=== PATIENT | male | born 1945 | race American Indian/Alaskan Native ===

== ENCOUNTER 2019-02-28 18:28 | Emergency (ER) | payer MEDICARE, OTHER ==
--- NOTE | 2019-02-28 18:28 | EDM.PDOC ---
<Juan York M - Last Filed: 02/28/19 18:28> ED HPI GENERAL MEDICAL PROBLEM - General Chief Complaint: General Stated Complaint: AMBULANCE Time Seen by Provider: 02/28/19 18:10 Source of Information: Reports: Patient History Limitations: Reports: No Limitations - History of Present Illness INITIAL COMMENTS - FREE TEXT/NARRATIVE: This 73 yo male patient was brought to the ED by [facility] due to right sided groin pain. The patient reports he started to notice some "lumps" in his groin about 1 week ago. The patient was seen in the [facility] on Tuesday and started on Cipro as well as given pain medications. The patient has not been able to get out of bed due to the increased pain. Dr. Pugh contacted [facility] who requested the ambulance go to the patient's house leading to the transport to the ED. The patient reports he has a history of prostate cancer 1 year ago(treated in [place]). After 7 treatments, the patient was told there was no more cancer and he was released. The patient has not had any problems since that time. Duration: Week(s):, Constant, Getting Worse Location: Reports: Lower Extremity, Right Quality: Reports: Ache, Pressure, Sharp Severity: Severe Improves with: Reports: None Worsens with: Reports: Movement Associated Symptoms: Reports: No Other Symptoms - Related Data Allergies Allergy/AdvReac Type Severity Reaction Status Date / Time No Known Allergies Allergy Verified 05/11/14 11:44 Home Meds: Home Meds Lisinopril 40 mg PO DAILY 04/08/14 [History] hydroCHLOROthiazide [Hydrochlorothiazide] 25 mg PO DAILY 04/08/14 [History] Ciprofloxacin HCl [Cipro] 500 mg PO BID 02/28/19 [History] Hydrocodone/Acetaminophen [Hydrocodon-Acetaminophen 5-325] 1 tab PO ASDIRECTED 02/28/19 [History] Past Medical History Cardiovascular History: Reports: Hypertension Genitourinary History: Reports: Other (See Below) Oncologic (Cancer) History: Reports: Other (See Below) Other Oncologic History: not sure of what - Past Surgical History Male Surgical History: Reports: Other (See Below) Other Male Surgeries/Procedures: superpubic catheter Social & Family History - Tobacco Use Smoking Status *Q: Former Smoker Years of Tobacco use: 45 Packs/Tins Daily: 1 Used Tobacco, but Quit: Yes Month/Year Tobacco Last Used: 2003 - Caffeine Use Caffeine Use: Reports: Coffee - Recreational Drug Use Recreational Drug Use: No - Living Situation & Occupation Living situation: Reports: , with Family Occupation: Disabled ED ROS GENERAL - Review of Systems Review Of Systems: ROS reveals no pertinent complaints other than HPI. ED EXAM, GENERAL - Physical Exam Exam: See Below Exam Limited By: No Limitations General Appearance: Alert, WD/WN, Moderate Distress, Thin Eye Exam: Bilateral Eye: EOMI, Normal Inspection, PERRL Ears: Normal External Exam, Normal Canal, Hearing Grossly Normal, Normal TMs Nose: Normal Inspection, Normal Mucosa, No Blood Throat/Mouth: Normal Inspection, Normal Lips, Normal Teeth, Normal Gums, Normal Oropharynx, Normal Voice, No Airway Compromise Head: Atraumatic, Normocephalic Neck: Normal Inspection, Supple, Non-Tender, Full Range of Motion Respiratory/Chest: No Respiratory Distress, Lungs Clear, Normal Breath Sounds, No Accessory Muscle Use, Chest Non-Tender Cardiovascular: Normal Peripheral Pulses, Regular Rate, Rhythm, No Edema, No Gallop, No JVD, No Murmur, No Rub GI/Abdominal: Normal Bowel Sounds, Soft, Non-Tender, No Organomegaly, No Distention, No Abnormal Bruit, No Mass (Male) Exam: Scrotum Tenderness (R), Other (right groin mass) Rectal (Males) Exam: Deferred Extremities: Leg Pain (right groin) Neurological: Alert, Oriented, CN II-XII Intact, Normal Cognition Psychiatric: Normal Affect, Normal Mood Skin Exam: Warm, Dry, Intact, Normal Color, No Rash Lymphatic: No Adenopathy Course - Vital Signs Last Recorded V/S: Last Vital Signs Temp 97.5 F 02/28/19 20:24 Pulse 73 02/28/19 20:26 Resp 19 02/28/19 20:26 BP 116/79 02/28/19 20:26 Pulse Ox 95 02/28/19 20:26 - Orders/Labs/Meds Orders: Active Orders 24 hr Category Date Time Status Abdomen Pelvis w Cont [CT] Urgent Exams 02/28/19 19:06 Taken CULTURE BLOOD [BC] Stat Lab 02/28/19 18:23 Received CULTURE BLOOD [BC] Stat Lab 02/28/19 18:45 Received CULTURE URINE [RM] Stat Lab 02/28/19 19:35 Received CULTURE WOUND [RM] Stat Lab 02/28/19 17:41 Received Piperacillin/Tazobactam [Zosyn] 3.375 gm Med 02/28/19 20:29 Ordered Sodium Chloride 0.9% [Normal Saline] 100 ml IV ONETIME Sodium Chloride 0.9% [Normal Saline] 1,000 ml Med 02/28/19 19:52 Active IV .BOLUS Vancomycin 1 gm Med 02/28/19 19:55 Active Sodium Chloride 0.9% [Normal Saline] 250 ml IV ONETIME Blood Culture x2 Reflex Set [OM.PC] Stat Oth 02/28/19 18:18 Ordered Medication Orders Sodium Chloride (Normal Saline) 1,000 mls @ 500 mls/hr IV .BOLUS ONE Stop: 02/28/19 21:51 Last Admin: 02/28/19 20:09 Dose: 500 mls/hr Vancomycin HCl 1 gm/ Sodium (Chloride) 250 mls @ 167 mls/hr IV ONETIME ONE Stop: 02/28/19 21:24 Last Admin: 02/28/19 20:09 Dose: 167 mls/hr Piperacillin Sod/Tazobactam (Sod 3.375 gm/ Sodium Chloride) 100 mls @ 200 mls/ hr IV ONETIME ONE Stop: 02/28/19 20:58 Labs: Laboratory Tests 02/28/19 02/28/19 02/28/19 Range/Units 18:23 18:23 18:23 WBC 20.4 H (5.0-10.0) 10^3/uL RBC 3.87 L (4.6-6.2) 10^6/uL Hgb 11.8 L (14.0-18.0) g/dL Hct 35.2 L (40.0-54.0) % MCV 91.0 (80-100) fL MCH 30.5 (27.0-34.0) pg MCHC 33.5 (33.0-35.0) g/dL Plt Count 444 (150-450) 10^3/uL Neut % (Auto) 81.6 H (42.2-75.2) % Lymph % (Auto) 7.3 L (20.5-50.1) % [place] % (Auto) 10.8 H (2-8) % Eos % (Auto) 0.2 L (1.0-3.0) % Baso % (Auto) 0.1 (0.0-1.0) % Sodium 129 L (135-145) mmol/L Potassium 3.4 L (3.6-5.0) mmol/L Chloride 94 L (101-111) mmol/L Carbon Dioxide 25.0 (21.0-31.0) mmol/L Anion Gap 13.4 BUN 12 (7-18) mg/dL Creatinine 0.7 (0.6-1.3) mg/dL Est Cr Clr Drug Dosing 97.04 mL/min Estimated GFR (MDRD) > 60 BUN/Creatinine Ratio 17.14 Glucose 131 H (74-105) mg/dL Lactic Acid 0.9 (0.5-2.2) mmol/L Calcium 8.1 L (8.4-10.2) mg/dl Total Bilirubin 0.9 (0.2-1.0) mg/dL AST 23 (10-42) IU/L ALT 21 (10-60) IU/L Alkaline Phosphatase 112 (42-121) IU/L Total Protein 7.6 (6.7-8.2) g/dl Albumin 2.5 L (3.2-5.5) g/dl Globulin 5.1 Albumin/Globulin Ratio 0.49 Urine Color (YELLOW) Urine Appearance (CLEAR) Urine pH (5.0-9.0) Ur Specific [place] (1.005-1.030) Urine Protein (NEGATIVE) Urine Glucose (UA) (NEGATIVE) Urine Ketones (NEGATIVE) Urine Occult Blood (NEGATIVE) Urine Nitrite (NEGATIVE) Urine Bilirubin (NEGATIVE) Urine Urobilinogen (0.2-1.0) mg/dL Ur Leukocyte Esterase (NEGATIVE) Urine RBC /HPF Urine WBC (0-5/HPF) /HPF Ur Epithelial Cells (NOT SEEN) /HPF Amorphous Sediment (NOT SEEN) /HPF Urine Bacteria (0-FEW/HPF) /HPF Urine Mucus (NOT SEEN) /LPF 02/28/19 Range/Units 19:35 WBC (5.0-10.0) 10^3/uL RBC (4.6-6.2) 10^6/uL Hgb (14.0-18.0) g/dL Hct (40.0-54.0) % MCV (80-100) fL MCH (27.0-34.0) pg MCHC (33.0-35.0) g/dL Plt Count (150-450) 10^3/uL Neut % (Auto) (42.2-75.2) % Lymph % (Auto) (20.5-50.1) % [place] % (Auto) (2-8) % Eos % (Auto) (1.0-3.0) % Baso % (Auto) (0.0-1.0) % Sodium (135-145) mmol/L Potassium (3.6-5.0) mmol/L Chloride (101-111) mmol/L Carbon Dioxide (21.0-31.0) mmol/L Anion Gap BUN (7-18) mg/dL Creatinine (0.6-1.3) mg/dL Est Cr Clr Drug Dosing mL/min Estimated GFR (MDRD) BUN/Creatinine Ratio Glucose (74-105) mg/dL Lactic Acid (0.5-2.2) mmol/L Calcium (8.4-10.2) mg/dl Total Bilirubin (0.2-1.0) mg/dL AST (10-42) IU/L ALT (10-60) IU/L Alkaline Phosphatase (42-121) IU/L Total Protein (6.7-8.2) g/dl Albumin (3.2-5.5) g/dl Globulin Albumin/Globulin Ratio Urine Color Yellow (YELLOW) Urine Appearance Turbid (CLEAR) Urine pH 6.5 (5.0-9.0) Ur Specific [place] 1.010 (1.005-1.030) Urine Protein Negative (NEGATIVE) Urine Glucose (UA) Negative (NEGATIVE) Urine Ketones Negative (NEGATIVE) Urine Occult Blood Trace-intact H (NEGATIVE) Urine Nitrite Positive H (NEGATIVE) Urine Bilirubin Negative (NEGATIVE) Urine Urobilinogen 4.0 H (0.2-1.0) mg/dL Ur Leukocyte Esterase Moderate H (NEGATIVE) Urine RBC 5-10 H /HPF Urine WBC >100 H (0-5/HPF) /HPF Ur Epithelial Cells Rare (NOT SEEN) /HPF Amorphous Sediment Few (NOT SEEN) /HPF Urine Bacteria Many H (0-FEW/HPF) /HPF Urine Mucus Not seen (NOT SEEN) /LPF Meds: Medications Generic Name Dose Route Start Last Admin Trade Name Freq PRN Reason Stop Dose Admin Sodium Chloride 1,000 mls @ 500 mls/hr 02/28/19 19:52 02/28/19 20:09 Normal Saline IV 02/28/19 21:51 500 mls/hr .BOLUS ONE Administration Vancomycin HCl 1 gm/ Sodium 250 mls @ 167 mls/hr 02/28/19 19:55 02/28/19 20: 09 Chloride IV 02/28/19 21:24 167 mls/hr ONETIME ONE Administration Piperacillin Sod/Tazobactam 100 mls @ 200 mls/hr 02/28/19 20:29 Sod 3.375 gm/ Sodium Chloride IV 02/28/19 20:58 ONETIME ONE Discontinued Medications Generic Name Dose Route Start Last Admin Trade Name Freq PRN Reason Stop Dose Admin Fentanyl 50 mcg 02/28/19 19:52 02/28/19 20:08 Sublimaze IVPUSH 02/28/19 19:53 50 mcg ONETIME ONE Administration Iopamidol 100 ml 02/28/19 19:06 02/28/19 19:38 Isovue-300 (61%) IVPUSH 02/28/19 19:07 98 ml ONETIME ONE Administration Ondansetron HCl 4 mg 02/28/19 19:52 02/28/19 20:07 Zofran IV 02/28/19 19:53 4 mg ONETIME ONE Administration Departure - Departure Disposition: DC/Tfer to [facility] 02 Clinical Impression: Groin abscess, Abscess or cellulitis of thigh, Suprapubic catheter - Discharge Information Forms: ED Department Discharge - My Orders Last 24 Hours: My Active Orders 02/28/19 19:52 Sodium Chloride 0.9% [Normal Saline] 1,000 ml IV .BOLUS 02/28/19 19:55 Vancomycin 1 gm Sodium Chloride 0.9% [Normal Saline] 250 ml IV ONETIME 02/28/19 20:29 Piperacillin/Tazobactam [Zosyn] 3.375 gm Sodium Chloride 0.9% [Normal Saline] 100 ml IV ONETIME - Assessment/Plan Last 24 Hours: My Active Orders 02/28/19 19:52 Sodium Chloride 0.9% [Normal Saline] 1,000 ml IV .BOLUS 02/28/19 19:55 Vancomycin 1 gm Sodium Chloride 0.9% [Normal Saline] 250 ml IV ONETIME 02/28/19 20:29 Piperacillin/Tazobactam [Zosyn] 3.375 gm Sodium Chloride 0.9% [Normal Saline] 100 ml IV ONETIME <Katerina Zaragoza - Last Filed: 02/28/19 20:47> ED HPI GENERAL MEDICAL PROBLEM - History of Present Illness INITIAL COMMENTS - FREE TEXT/NARRATIVE: Hx supra pubic catheter around 10 years placed for retention following remote head injury when fell in tub. ED EXAM, GENERAL - Physical Exam (Male) Exam: Other (right groin mass, Suproapubic catheter draining concentrated urine. ) Skin Exam: Increased Warmth (right inner upper thigh), Other (2cm open wound right groin fold draing dark green thick purulent foul smelling fluid.) Course - Radiology Interpretation Free Text/Narrative:: [facility] Final Radiology Report with Addendum Call: [phone] assistance Online chat: [email or web address] Name: HOWARD GERBER Age: 73Years M Date: 02/28/2019 SSN: -- : [id number] Study: CT ABDOMEN/PELVIS W Requesting Physician: Juan York Images: 268 Addl Studies: Provided Clinical History: Contrast: With Contrast Medium: ISO 300 Contrast Amount: 98 mL Contrast Method: LAC 18g Page 1 of 2 Addendum created by Saida Peoples MD on 02/28/2019 8:37 PM Central Time ([place] & [place]) Additional axial images were obtained of the proximal thighs. Initial Report created on 02/28/2019 8:06 PM Central Time ([place] & [place]) EXAM: CT Abdomen and Pelvis With Contrast EXAM DATE/TIME: 02/28/2019 7:25 PM CLINICAL HISTORY: 73 years old, male; Other: Abscess right groin, HX of prostate CA; Patient HX: PT states no HX of surgery TECHNIQUE: Imaging protocol: Axial computed tomography images of the abdomen and pelvis with intravenous contrast. Coronal and sagittal reformatted images were created and reviewed. Radiation optimization: All CT scans at this facility use at least one of these dose optimization techniques: automated exposure control; mA and/or kV adjustment per patient size (includes targeted exams where dose is matched to clinical indication); or iterative reconstruction. Contrast material: ISO 300; Contrast volume: 98 ml; Contrast route: LAC 18G; COMPARISON: No relevant prior studies available. FINDINGS: Liver: Normal. No mass. Gallbladder and bile ducts: Gallstones without evidence of acute cholecystitis. HOWARD GERBER | Final Radiology Report CONFIDENTIALITY STATEMENT This report is intended only for use by the referring physician, and only in accordance with law. If you received this in error, call [phone]. Page 2 of 2 Pancreas: Normal. No ductal dilation. Spleen: Normal. No splenomegaly. Adrenals: Normal. No mass. Kidneys and ureters: Normal. No hydronephrosis. Stomach and bowel: Diffuse colonic diverticulosis without diverticulitis. Appendix: No evidence of appendicitis. Intraperitoneal space: Normal. No free air. No significant fluid collection. Vasculature: Atherosclerosis. Embolized right renal artery aneurysm. Lymph nodes: Normal. No enlarged lymph nodes. Bladder: Suprapubic Mederos catheter in the bladder. Thickening of the bladder wall up to 1.3 cm which could be related to under distention or cystitis. Reproductive: Unremarkable as visualized. Bones/joints: Old left rib fractures. Degenerative disc disease at L5-S1. Soft tissues: Bilateral inguinal hernias containing fat, uncomplicated. Intramuscular abscesses in the medial proximal thighs, not fully included on this exam. These measure at least 8 cm each. IMPRESSION: 1. Gallstones without evidence of acute cholecystitis. 2. Bilateral inguinal hernias containing fat, uncomplicated. 3. Intramuscular abscesses in the medial proximal thighs, not fully included on this exam. These measure at least 8 cm each. 4. Thickening of the bladder wall up to 1.3 cm which could be related to under distention or cystitis. Correlate with urinalysis. 5. Diffuse colonic diverticulosis without diverticulitis. Thank you for allowing us to participate in the care of your patient. Dictated and Authenticated by: Saida Peoples - Re-Assessments/Exams Free Text/Narrative Re-Assessment/Exam: 02/28/19 20:[address] Robert Kern accepting of patient . Tx via [facility]. Departure - Departure Time of Disposition: 20:45 Condition: Undetermined - Discharge Information *PRESCRIPTION DRUG MONITORING PROGRAM REVIEWED*: No *COPY OF PRESCRIPTION DRUG MONITORING REPORT IN PATIENT JULIO: No
[2019-02-28 18:51] LABS: ANION GAP 13.4; CHLORIDE,CL 94 mmol/L (101-111); SODIUM,NA 129 mmol/L (135-145)
[2019-02-28] MEDS ORDERED: Iopamidol 612 MG/ML 100 ML Bottle IVPUSH ONE (19:06)
[2019-02-28] MEDS ORDERED: Sodium Chloride 0.9% 1,000 ML IV ONE (19:52)
[2019-02-28] MEDS ORDERED: Ondansetron 4 MG/2 ML SDV IV ONE (19:52)
[2019-02-28] MEDS ORDERED: fentaNYL 100 MCG/2 ML SDV IVPUSH ONE ×2 (19:52→20:44)
[2019-02-28] MEDS ORDERED: Piperacillin/Tazobactam 3.375 GM in Sodium Chloride 0.9% 100 ML IV ONE (20:29)
== END 2019-02-28 21:09 ==
LOC: DL.ED 18:28
DX: L02.214 Cutaneous abscess of groin (principal); S71.101A Unspecified open wound, right thigh, initial encounter; L03.115 Cellulitis of right lower limb; I10 Essential (primary) hypertension; Z87.891 Personal history of nicotine dependence; Z79.899 Other long term (current) drug therapy; Z96.0 Presence of urogenital implants; X58.XXXA Exposure to other specified factors, initial encounter
CPT/HCPCS: 36415; 74177; 80053; 81001; 83605; 85025; 87040; 87070; 87077; 87086; 87088; 87186; 96365; 96368; 96375; 96376; 99285-25; J2405; J2543; J3010; J3370; J7030; J7050; Q9967

== ENCOUNTER 2020-04-26 11:24 | Emergency (ER) | payer MEDICARE, OTHER ==
--- NOTE | 2020-04-26 12:03 | EDM.PDOC ---
<Ana Maria Awad R - Last Filed: 04/26/20 13:44> ED HPI GENERAL MEDICAL PROBLEM - General Chief Complaint: Respiratory Problem Stated Complaint: IN BY AMBULANCE Time Seen by Provider: 04/26/20 12:11 Source of Information: Reports: Patient History Limitations: Reports: No Limitations - History of Present Illness INITIAL COMMENTS - FREE TEXT/NARRATIVE: Pt is a 75 year old male with hx of alcohol abuse, chronic liver disease, HTN, prostate cancer who presents with productive cough x 2 weeks, worsening with shortness of breath. He denies fever, chills, nausea, vomiting, chest pain, lower extremity edema, diarrhea. Per patient, last drink was 1 week ago. States he drinks a 6 pack of beer daily. He is a non-smoker. Onset: Gradual Duration: Getting Worse Location: Reports: Chest Severity: Moderate Associated Symptoms: Reports: Cough, cough w sputum - Related Data Allergies Allergy/AdvReac Type Severity Reaction Status Date / Time No Known Allergies Allergy Verified 04/26/20 11:24 Home Meds: Home Meds Acetaminophen 1,000 mg PO Q8H 03/12/19 [History] Aspirin [Halfprin] 81 mg PO DAILY 03/12/19 [History] Gabapentin [Neurontin] 200 mg PO TID 03/12/19 [History] Metoprolol Tartrate [Lopressor] 25 mg PO BEDTIME 03/12/19 [History] Metoprolol Tartrate [Lopressor] 50 mg PO DAILY 03/12/19 [History] Multivitamin with Minerals [Multiple Vitamin] 1 tab PO DAILY 03/12/19 [History] Thiamine [Vitamin B-1] 100 mg PO DAILY 03/12/19 [History] oxyCODONE 10 mg PO Q4H PRN 03/12/19 [History] Past Medical History HEENT History: Reports: Cataract Other HEENT History: cataract in left eye Cardiovascular History: Reports: Hypertension Genitourinary History: Reports: Other (See Below) Other Genitourinary History: superpubic catheter Oncologic (Cancer) History: Reports: Prostate Other Oncologic History: 2018-radiation - Past Surgical History HEENT Surgical History: Reports: Cataract Surgery Male Surgical History: Reports: Other (See Below) Other Male Surgeries/Procedures: superpubic catheter Social & Family History - Family History Family Medical History: Noncontributory - Tobacco Use Smoking Status *Q: Never Smoker Second Hand Smoke Exposure: Yes - Caffeine Use Caffeine Use: Reports: Coffee - Alcohol Use Days Per Week of Alcohol Use: 7 Number of Drinks Per Day: 12 Total Drinks Per Week: 84 - Recreational Drug Use Recreational Drug Use: No - Living Situation & Occupation Living situation: Reports: , with Family Occupation: Disabled ED ROS GENERAL - Review of Systems Review Of Systems: See Below Constitutional: Reports: Malaise Respiratory: Reports: Shortness of Breath, Wheezing, Cough, Sputum Cardiovascular: Reports: Lightheadedness ED EXAM, GENERAL - Physical Exam Exam: See Below Exam Limited By: No Limitations General Appearance: Mild Distress Respiratory/Chest: Decreased Breath Sounds (Billaterally), Crackles (Bilaterally), Rhonchi (Bilaterally), Wheezing, Accessory Muscle Use (Male) Exam: Deferred, Other (suprpubic cather) Rectal (Males) Exam: Deferred Course - Vital Signs Text/Narrative:: COVID positive Lactic acid 7.9 1L LR bolus given Departure - Departure Time of Disposition: 13:44 Disposition: DC/Tfer to Acute Hospital 02 Condition: Poor Clinical Impression: Pneumonia, COVID-19, Sepsis, Respiratory distress, Elevated liver enzymes - Discharge Information Instructions: COVID-19, COVID-19: How to Protect Yourself and Others - CDC Referrals: PCP,None [Primary Care Provider] - Forms: ED Department Discharge Care Plan Goals: Discussed case with inhouse hospitalist Dr. Alonso who stated that with given mulitple cormobidities patient will require a higher level of care. Contacted [facility] in [place] and [facility] in [place] who stated that they do not have COVID rooms available at this time. Discussed case with Dr Bush at [facility] who accepted the patient. Patient is trasferred by ground ambulance with fluids and oxygen to be provided during transfer. Sepsis Event Note (ED) - Evaluation Sepsis Screening Result: No Definite Risk <Helen Renee - Last Filed: 04/26/20 16:22> ED EXAM, GENERAL - Physical Exam Nose: Normal Inspection, Normal Mucosa Head: Atraumatic, Normocephalic Course - Vital Signs Last Recorded V/S: Last Vital Signs Temp 98.4 F 04/26/20 11:35 Pulse 119 H 04/26/20 12:53 Resp 31 H 04/26/20 12:53 BP 129/74 04/26/20 12:53 Pulse Ox 99 04/26/20 12:53 - Orders/Labs/Meds Orders: Active Orders 24 hr Category Date Time Status CULTURE BLOOD [BC] Stat Lab 04/26/20 11:30 Received CULTURE BLOOD [BC] Stat Lab 04/26/20 13:37 Received Blood Culture x2 Reflex Set [OM.PC] Stat Oth 04/26/20 12:30 Ordered Peripheral IV Insertion Adult [OM.PC] Routine Oth 04/26/20 12:29 Ordered Labs: Laboratory Tests 04/26/20 04/26/20 04/26/20 Range/Units 11:18 11:30 11:30 WBC 15.5 H (5.0-10.0) 10^3/uL RBC 4.19 L (4.6-6.2) 10^6/uL Hgb 14.0 (14.0-18.0) g/dL Hct 39.0 L (40.0-54.0) % MCV 93.1 (80-100) fL MCH 33.4 (27.0-34.0) pg MCHC 35.9 H (33.0-35.0) g/dL Plt Count 110 L D (150-450) 10^3/uL Neut % (Auto) 89.7 H (42.2-75.2) % Lymph % (Auto) 2.2 L (20.5-50.1) % [place] % (Auto) 8.0 (2-8) % Eos % (Auto) 0.0 L (1.0-3.0) % Baso % (Auto) 0.1 (0.0-1.0) % Sodium 122 L (136-145) mmol/L Potassium 4.1 (3.5-5.1) mmol/L Chloride 87 L (98-107) mmol/L Carbon Dioxide 21 (21-32) mmol/L Anion Gap 18.1 H (7-13) mEq/L BUN 6 L (7-18) mg/dL Creatinine 0.82 (0.70-1.30) mg/dL Est Cr Clr Drug Dosing TNP Estimated GFR (MDRD) > 60 BUN/Creatinine Ratio 7.3 (No establ ref range) Glucose 133 H (74-99) mg/dL Lactic Acid (0.4-2.0) mmol/L Calcium 7.4 L (8.5-10.1) mg/dL Total Bilirubin 5.6 H (0.2-1.0) mg/dL AST 484 H (15-37) U/L ALT 55 (16-63) U/L Alkaline Phosphatase 397 H (46-116) U/L C-Reactive Protein (0.0-0.9) mg/dL Total Protein 8.3 H (6.4-8.2) g/dL Albumin 1.6 L (3.4-5.0) g/dL Globulin 6.7 Albumin/Globulin Ratio 0.24 Ethyl Alcohol (0) mg/dL COVID-19 (JOE) Positive H (NEGATIVE) 04/26/20 04/26/20 04/26/20 Range/Units 11:30 11:30 11:30 WBC (5.0-10.0) 10^3/uL RBC (4.6-6.2) 10^6/uL Hgb (14.0-18.0) g/dL Hct (40.0-54.0) % MCV (80-100) fL MCH (27.0-34.0) pg MCHC (33.0-35.0) g/dL Plt Count (150-450) 10^3/uL Neut % (Auto) (42.2-75.2) % Lymph % (Auto) (20.5-50.1) % [place] % (Auto) (2-8) % Eos % (Auto) (1.0-3.0) % Baso % (Auto) (0.0-1.0) % Sodium (136-145) mmol/L Potassium (3.5-5.1) mmol/L Chloride (98-107) mmol/L Carbon Dioxide (21-32) mmol/L Anion Gap (7-13) mEq/L BUN (7-18) mg/dL Creatinine (0.70-1.30) mg/dL Est Cr Clr Drug Dosing Estimated GFR (MDRD) BUN/Creatinine Ratio (No establ ref range) Glucose (74-99) mg/dL Lactic Acid 7.9 H* (0.4-2.0) mmol/L Calcium (8.5-10.1) mg/dL Total Bilirubin (0.2-1.0) mg/dL AST (15-37) U/L ALT (16-63) U/L Alkaline Phosphatase (46-116) U/L C-Reactive Protein 8.0 H (0.0-0.9) mg/dL Total Protein (6.4-8.2) g/dL Albumin (3.4-5.0) g/dL Globulin Albumin/Globulin Ratio Ethyl Alcohol 18 (0) mg/dL COVID-19 (JOE) (NEGATIVE) Meds: Medications Discontinued Medications Generic Name Dose Route Start Last Admin Trade Name Freq PRN Reason Stop Dose Admin Lactated Ringer's 1,000 mls @ 999 mls/hr 04/26/20 12:29 04/26/20 12:34 Ringers, Lactated IV 04/26/20 13:29 999 mls/hr .BOLUS ONE Administration Metoprolol Succinate 50 mg 04/26/20 12:29 04/26/20 12:37 Toprol Xl PO 04/26/20 12:30 50 mg ONETIME ONE Administration Sodium Chloride 10 ml 04/26/20 12:29 04/26/20 12:34 Saline Flush FLUSH 10 ml ASDIRECTED PRN Administration Keep Vein Open Sepsis Event Note (ED) - Focused Exam Vital Signs: Vital Signs Temp Pulse Pulse Resp BP BP Pulse Ox 04/26/20 12:53 119 H 31 H 129/74 99 04/26/20 12:37 133 H 164/90 H 04/26/20 11:35 98.4 F 139 H 40 H 155/91 H 100 - My Orders Last 24 Hours: My Active Orders 04/26/20 12:29 Peripheral IV Insertion Adult [OM.PC] Routine - Assessment/Plan Last 24 Hours: My Active Orders 04/26/20 12:29 Peripheral IV Insertion Adult [OM.PC] Routine Plan: Patient seen and examined. Agree with note as written by Dr. Awad. 04/26/2020 [id number]
[2020-04-26 12:11] LABS: ANION GAP 18.1 mEq/L (7-13)
[2020-04-26] MEDS ORDERED: Lactated Ringers 1,000 ML IV ONE (12:29)
[2020-04-26] MEDS ORDERED: Metoprolol Succinate 50 MG Tab.ER PO ONE (12:29)
[2020-04-26] MEDS ORDERED: Sodium Chloride 0.9% 10 ML Syringe FLUSH PRN (12:29)
[2020-04-26 12:31] LABS: CHLORIDE,CL 87 mmol/L (98-107); SODIUM,NA 122 mmol/L (136-145)
--- NOTE | 2020-04-26 13:45 | CT ---
PROCEDURE INFORMATION: Exam: CT Chest Without Contrast Exam date and time: 04/26/2020 12:57 PM Age: 75 years old Clinical indication: Tachypnea; Additional info: Covid positive, tachypneic TECHNIQUE: Imaging protocol: Computed tomography of the chest without contrast. Radiation optimization: All CT scans at this facility use at least one of these dose optimization techniques: automated exposure control; mA and/or kV adjustment per patient size (includes targeted exams where dose is matched to clinical indication); or iterative reconstruction. COMPARISON: CT Chest Abdomen Pelvis w Cont 07/14/2018 11:23 AM FINDINGS: Limitations: Motion artifact. Lungs: On lung windows the patient has underlying lung disease with findings consistent with emphysema. There are bilateral apical pleural based blebs . there is an area airspace disease abutting the left heart border as well as airspace disease in the lingula, some of these opacifications have ground-glass features. In addition there are peripheral patchy areas alveolar disease involving multiple segments the right lower lobe. Pleural space: No pleural effusion. Heart: Unremarkable. No cardiomegaly. No pericardial effusion. Aorta: On mediastinal windows atherosclerotic changes are seen involving the aortic arch and proximal abdominal aorta. Lymph nodes: Unremarkable. No enlarged lymph nodes. Liver: The patient's liver is severely decreased in attenuation consistent with fatty infiltration. It measures -2 Hounsfield units. It measures 25 x 20 cm in size. Intraperitoneal space: In the images of the upper abdomen there is now free fluid seen around the spleen which was not present on prior exam. Visualized portion of the gallbladder demonstrates the gallbladder to be distended with several large gallstones present. Bones/joints: On bone windows there is mild curvature of the spine. There is discogenic degenerative changes in the visualized thoracic spine and there is mild compression deformity at approximately T8. Soft tissues: Unremarkable. IMPRESSION: 1. Bilateral peripheral infiltrates some of which have alveolar features. This finding can be seen CoVID pneumonia. However, in addition the patient has underlying lung disease consistent with emphysema.Imaging features can be seen with COVID-19 pneumonia, though are nonspecific and can occur with a variety of infectious and noninfectious processes. References: milton Miranda al., Rad[employer] Society of [place] Expert Consensus Statement on Reporting Chest CT Findings Related to COVID-19. Endorsed by the Society of Thoracic Radiology, the [place] [employer], and [employer]NA. Published December 05, 2019. 2. To prior exam patient now has some free fluid around the spleen. The liver is enlarged and demonstrates fatty infiltration. Two gallstones are seen in a distended gallbladder as well.
== END 2020-04-26 14:00 ==
LOC: DL.ED 11:24
DX: A41.89 Other specified sepsis (principal); U07.1 COVID-19; J12.89 Other viral pneumonia; R74.8 Abnormal levels of other serum enzymes; I10 Essential (primary) hypertension; Z79.82 Long term (current) use of aspirin; Z79.899 Other long term (current) drug therapy; Z77.22 Contact with and (suspected) exposure to environmental tobacco smoke (acute) (chronic)
CPT/HCPCS: 36415; 71250; 80053; 80307; 83605; 85025; 86140; 87040; 96360; 99284; 99285; A9270; J7120; U0002

== ENCOUNTER 2020-05-06 13:20 | Emergency (ER) | payer MEDICARE, OTHER ==
[2020-05-06 13:54] LABS: ALLEN TEST PERFORMED; BASE EXCESS ARTERIAL 0 mmol/L ((-2)-(+3)); BICARBONATE,ARTERIAL 22.2 mmol/L (22-26); O2 DELIVERY DEVICE BIPAP; O2 SATURATION ARTERIAL 100 % (95-100); PCO2 ARTERIAL 31 mmHg (35-45); PO2 ARTERIAL 228 mmHg (70-100)
--- NOTE | 2020-05-06 13:56 | EDM.PDOC ---
ED HPI GENERAL MEDICAL PROBLEM - General Chief Complaint: Respiratory Problem Time Seen by Provider: 05/06/20 13:40 Source of Information: Reports: Patient, EMS History Limitations: Reports: Altered Mental Status - History of Present Illness INITIAL COMMENTS - FREE TEXT/NARRATIVE: This 75 yo male patient was brought to the ED by [facility] due to increased shortness of breath. The patient was diagnoses with COVID on 04/26/20 and sent to [facility] for treatment. The patient was released on 05/01/20, but has been experiencing increased shortness of breath over the past several days. The patient has a history of alcohol abuse, chronic liver disease, hypertension and prostate cancer. Upon arrival in the ED the patient's oxygen level was 79% on 10 lpm via NR. The patient increased to 80% with the oxygen set at 15 lpm via NR. Onset: Gradual Duration: Day(s):, Constant, Getting Worse Location: Reports: Chest Quality: Reports: Other Severity: Severe Improves with: Reports: None Worsens with: Reports: None Context: Reports: Other Associated Symptoms: Reports: Shortness of Breath - Related Data Allergies Allergy/AdvReac Type Severity Reaction Status Date / Time No Known Allergies Allergy Verified 04/26/20 11:24 Home Meds: Home Meds Acetaminophen 1,000 mg PO Q8H 03/12/19 [History] Aspirin [Halfprin] 81 mg PO DAILY 03/12/19 [History] Gabapentin [Neurontin] 200 mg PO TID 03/12/19 [History] Metoprolol Tartrate [Lopressor] 25 mg PO BEDTIME 03/12/19 [History] Metoprolol Tartrate [Lopressor] 50 mg PO DAILY 03/12/19 [History] Multivitamin with Minerals [Multiple Vitamin] 1 tab PO DAILY 03/12/19 [History] Thiamine [Vitamin B-1] 100 mg PO DAILY 03/12/19 [History] oxyCODONE 10 mg PO Q4H PRN 03/12/19 [History] Past Medical History HEENT History: Reports: Cataract Other HEENT History: cataract in left eye Cardiovascular History: Reports: Hypertension Genitourinary History: Reports: Other (See Below) Other Genitourinary History: superpubic catheter Oncologic (Cancer) History: Reports: Prostate Other Oncologic History: 2018-radiation - Past Surgical History HEENT Surgical History: Reports: Cataract Surgery Male Surgical History: Reports: Other (See Below) Other Male Surgeries/Procedures: superpubic catheter Social & Family History - Family History Family Medical History: Noncontributory - Caffeine Use Caffeine Use: Reports: Coffee - Living Situation & Occupation Living situation: Reports: , with Family Occupation: Disabled ED ROS GENERAL - Review of Systems Review Of Systems: Comprehensive ROS is negative, except as noted in HPI. ED EXAM, GENERAL - Physical Exam Exam: See Below Exam Limited By: No Limitations General Appearance: Alert, Severe Distress, Obese Eye Exam: Bilateral Eye: EOMI, Normal Inspection, PERRL Ears: Normal External Exam, Normal Canal, Hearing Grossly Normal, Normal TMs Nose: Normal Inspection, Normal Mucosa, No Blood Throat/Mouth: Normal Inspection, Normal Lips, Normal Teeth, Normal Gums, Normal Oropharynx, Normal Voice, No Airway Compromise Head: Atraumatic, Normocephalic Respiratory/Chest: Decreased Breath Sounds, Rhonchi (throughout) Cardiovascular: Tachycardia GI/Abdominal: Normal Bowel Sounds, Non-Tender, Distended (Male) Exam: Deferred Rectal (Males) Exam: Deferred Back Exam: Normal Inspection, Full Range of Motion, NT Neurological: Alert, Slow to Respond Psychiatric: Normal Affect, Normal Mood Skin Exam: Jaundice Lymphatic: No Adenopathy Course - Vital Signs Last Recorded V/S: Last Vital Signs Temp 36.3 C 05/06/20 13:39 Pulse 120 H 05/06/20 13:39 Resp 21 H 05/06/20 13:39 BP 121/89 05/06/20 13:39 Pulse Ox 83 L 05/06/20 13:39 - Orders/Labs/Meds Orders: Active Orders 24 hr Category Date Time Status EKG Documentation Completion [RC] STAT Care 05/06/20 13:01 Active Chest 1V Frontal [CR] Urgent Exams 05/06/20 13:33 Ordered COMPREHENSIVE METABOLIC PN,CMP [CHEM] Stat Lab 05/06/20 13:40 Received CULTURE BLOOD [BC] Stat Lab 05/06/20 13:40 Results CULTURE URINE [RM] Urgent Lab 05/06/20 13:11 Received D-DIMER QUANTITATIVE [COAG] Stat Lab 05/06/20 13:01 Ordered LACTATE SEPSIS W/ REFLEX [CHEM] Stat Lab 05/06/20 13:01 Ordered TROPONIN I [CHEM] Stat Lab 05/06/20 13:40 Received Labs: Laboratory Tests 05/06/20 05/06/20 05/06/20 Range/Units 13:11 13:25 13:42 WBC 18.8 H (5.0-10.0) 10^3/uL RBC 4.09 L (4.6-6.2) 10^6/uL Hgb 14.2 (14.0-18.0) g/dL Hct 38.9 L (40.0-54.0) % MCV 95.1 (80-100) fL MCH 34.7 H (27.0-34.0) pg MCHC 36.5 H (33.0-35.0) g/dL Plt Count 179 (150-450) 10^3/uL Neut % (Auto) 84.7 H (42.2-75.2) % Lymph % (Auto) 2.3 L (20.5-50.1) % [place] % (Auto) 12.7 H (2-8) % Eos % (Auto) 0.1 L (1.0-3.0) % Baso % (Auto) 0.2 (0.0-1.0) % Add Manual Diff Yes Neutrophils % (Manual) 81 H (42-75) % Band Neutrophils % 5 % Lymphocytes % (Manual) 6 L (20-50) % Monocytes % (Manual) 8 (2-8) % ABG pH 7.47 H (7.35-7.45) ABG pCO2 31 L (35-45) mmHg ABG pO2 228 H (70-100) mmHg ABG HCO3 22.2 (22-26) mmol/L ABG O2 Saturation 100 (95-100) % ABG Base Excess 0 ((-2)-(+3)) mmol/L Ant Test Performed O2 Delivery Device Bipap Urine Color (YELLOW) Urine Appearance Turbid (CLEAR) Urine pH 6.0 (5.0-9.0) Ur Specific [place] 1.020 (1.005-1.030) Urine Protein 30 H (NEGATIVE) Urine Glucose (UA) 100 H (NEGATIVE) Urine Ketones Trace H (NEGATIVE) Urine Occult Blood Small H (NEGATIVE) Urine Nitrite Positive H (NEGATIVE) Urine Bilirubin Large H (NEGATIVE) Urine Urobilinogen 2.0 H (0.2-1.0) mg/dL Ur Leukocyte Esterase Trace H (NEGATIVE) Urine RBC 10-20 H /HPF Urine WBC 5-10 H (0-5/HPF) /HPF Ur Epithelial Cells Rare (NOT SEEN) /HPF Amorphous Sediment Moderate (NOT SEEN) /HPF Urine Bacteria Many H (0-FEW/HPF) /HPF Urine Yeast Many H (NOT SEEN) /HPF Departure - Departure Time of Disposition: 13:56 Disposition: DC/Tfer to Acute Hospital 02 Condition: Serious Clinical Impression: Respiratory distress, COVID-19 - Discharge Information *PRESCRIPTION DRUG MONITORING PROGRAM REVIEWED*: Not Applicable *COPY OF PRESCRIPTION DRUG MONITORING REPORT IN PATIENT JULIO: Not Applicable Forms: Interfacility Transfer EMTALA Care Plan Goals: Discussed the history, examination, lab and treatments with Dr. Angel during the visit. Dr. Angel accepted the patient for continued evaluation and management as an inpatient at [facility] in [place]. The patient will be transported by [facility]. Sepsis Event Note (ED) - Evaluation Sepsis Screening Result: Possible Sepsis Risk - Focused Exam Vital Signs: Vital Signs Temp Pulse Resp BP Pulse Ox 05/06/20 13:39 36.3 C 120 H 21 H 121/89 83 L - My Orders Last 24 Hours: My Active Orders 05/06/20 13:01 EKG Documentation Completion [RC] STAT D-DIMER QUANTITATIVE [COAG] Stat LACTATE SEPSIS W/ REFLEX [CHEM] Stat 05/06/20 13:11 CULTURE URINE [RM] Urgent 05/06/20 13:33 Chest 1V Frontal [CR] Urgent 05/06/20 13:40 COMPREHENSIVE METABOLIC PN,CMP [CHEM] Stat CULTURE BLOOD [BC] Stat TROPONIN I [CHEM] Stat - Assessment/Plan Last 24 Hours: My Active Orders 05/06/20 13:01 EKG Documentation Completion [RC] STAT D-DIMER QUANTITATIVE [COAG] Stat LACTATE SEPSIS W/ REFLEX [CHEM] Stat 05/06/20 13:11 CULTURE URINE [RM] Urgent 05/06/20 13:33 Chest 1V Frontal [CR] Urgent 05/06/20 13:40 COMPREHENSIVE METABOLIC PN,CMP [CHEM] Stat CULTURE BLOOD [BC] Stat TROPONIN I [CHEM] Stat
--- NOTE | 2020-05-06 14:09 | CR ---
EXAMINATION: Chest 1V Frontal SEX: Male AGE: 75 years CLINICAL HISTORY: 75-year-old male with SHORTNESS OF BREATH reported on CT scan 26 April (positive Covid 19) to have "cholelithiasis, fatty liver, emphysema, and bilateral peripheral infiltrates". Interpretation: 1. Chronic asymmetric elevation right hemidiaphragm with patchy underlying ipsilateral atelectasis. 2. Normal cardiac silhouette. No pulmonary vascular congestion, cephalization of flow or alveolar edema. 3. No lung mass, hilar lymphadenopathy or new focal lobar consolidation (infiltrate/atelectasis). 4. No dependent pleural effusion. 5. Bony thorax unremarkable. 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 Gown snap. 6. No pneumothorax or pneumomediastinum. Midline tracheal bronchial airway unremarkable. CONCLUSION: No acute new cardiopulmonary abnormality.
[2020-05-06 14:24] LABS: CHLORIDE,CL 87 mmol/L (98-107)
[2020-05-06 14:31] LABS: SODIUM,NA 115 mmol/L (136-145)
[2020-05-06 14:34] LABS: ANION GAP 19.2 mEq/L (7-13)
== END 2020-05-06 14:20 ==
LOC: DL.ED 13:20
DX: U07.1 COVID-19 (principal); I10 Essential (primary) hypertension; Z79.82 Long term (current) use of aspirin; Z79.899 Other long term (current) drug therapy
CPT/HCPCS: 36415; 36600; 71045; 80053; 81001; 82803; 84484; 85025; 87040; 87086; 87088; 87186; 93005; 94660; 99284; 99285-25